=== PATIENT | male | born 1980 | race Hispanic/Latino ===

== ENCOUNTER 2023-05-27 13:16 | Emergency (ER) | payer SELFPAY ==
[2023-05-27] MEDS ORDERED: GABAPENTIN 300 MG CAP ONE (14:26)
--- NOTE | 2023-05-27 14:45 | RAD REPORT ---
EXAM DESCRIPTION: CT - Spine Lumbar Wo Con - 05/27/2023 2:05 pm CLINICAL HISTORY: Radiculopathy. Pain;Numbness/tingling COMPARISON: No comparisons TECHNIQUE: Axial noncontrast CT imaging of the lumbar spine was performed with coronal and sagittal re-formatted images. All CT scans are performed using dose optimization technique as appropriate and may include automated exposure control or mA/KV adjustment according to patient size. FINDINGS: No acute lumbar spine fracture seen. No aggressive marrow pattern or malalignment. Paraspinal tissues are normal in thickness. No paraspinal abscess or hematoma seen. Intervertebral disc disease assessment is inherently limited by CT. Within these limitations, a large central/left subarticular disc extrusion was present L4-5, with annular mineralization, resulting in a degree of canal stenosis, with a caudally migrated component extending 11 mm below the level of L5 superior endplate. This component also narrows the left lateral recess. Endplate and facet remodelin g contributes to moderate bilateral L5-S1 and [id number] bilateral L4-5 bony neural foraminal n arrowing. IMPRESSION: No acute osseus abnormality. Large disc extrusion with caudal migration at L4-5 as above. This may result in encroachment upon the exiting left L4 and descending left L5 nerve roots. Please correlate clinically.Consider MRI follow- up for assessment of disc disease and neural impingement as clinically indicated. Other degenerative changes as above.
--- NOTE | 2023-05-27 15:03 | RAD REPORT ---
EXAM DESCRIPTION: US - Extremity Venous Uni Ltd - 05/27/2023 2:16 pm CLINICAL HISTORY: Pain COMPARISON: None. TECHNIQUE: Real-time sonographic evaluation of the left lower extremity deep venous system was perfo rmed. FINDINGS: Normal compressibility, flow augmentation, phasic flow and spontaneous flow is identified in the left lower extremity deep venous system. No intraluminal filling defects seen. IMPRESSION: No DVT in the left lower extremity.
--- NOTE | 2023-05-27 16:13 | EDPHYS ---
Physician Documentation [facility] Name: Paco Isidro Age: 42 yrs Sex: Male : 1980 Arrival Date: 05/27/2023 Time: 13:16 Bed 19 Private MD: ED Physician Patrick Stallworth HPI: 05/28 13:48 This 42 yrs old Male presents to ER via Wheelchair with complaints of Leg Pain.sb4 13:48 Patient states that he has been experiencing pain in his lateral left knee that sb4 radiates down to his foot and up to his hip for a few days now. He saw his PCP who gave him a steroid injection and prescribed him 800 mg ibuprofen and methocarbamol. He states that he has been taking the medication but that the pain was even worse this morning and wanted to have it evaluated. He denies any numbness or tingling or specific injury to the area. Historical: - Allergies: 05/27 13:36 No Known Allergies; hb - Home Meds: 13:36 None [Active]; hb - PMHx: 13:36 None; hb - PSHx: 13:36 None; hb - Immunization history:: Adult Immunizations up to date. - Social history:: Smoking status: Patient reports the use of cigarette tobacco products, smokes one-half pack cigarettes per day. ROS: 05/28 13:48 Constitutional: Negative for fever, chills, and weight loss, sb4 MS/extremity: Positive for pain, of the left leg, All other systems are negative, Exam: 13:48 Constitutional: This is a well developed, well nourished patient who is awake, alert, sb4 and in no acute distress. Head/Face: Normocephalic, atraumatic. Eyes: Extra-ocular motions intact. Periorbital areas with no swelling, redness, or edema. ENT: Mucous membranes moist. Cardiovascular: Regular rate and rhythm with a normal S1 and S2. Respiratory: Lungs have equal breath sounds bilaterally, clear to auscultation and percussion. No rales, rhonchi or wheezes noted. No increased work of breathing, no retractions or nasal flaring. Abdomen/GI: Soft, non-tender, no distension. Skin: Warm, dry with normal turgor. Normal color with no rashes, no lesions, and no evidence of cellulitis. MS/ Extremity: Pulses equal, no cyanosis. Neurovascular intact. Full, normal range of motion. Neuro: Awake and alert, GCS 15, oriented to person, place, time, and situation. Motor strength 5/5 in all extremities. Sensory grossly intact. Vital Signs: 05/27 13:33 BP 140 / 89; Pulse 67; Resp 16; Temp 97.7(TE); Pulse Ox 100% ; Weight 92.99 kg; Height hb 5 ft. 6 in. ; Pain 10/10; 16:34 BP 136 / 97; Pulse 62; Resp 15; Pulse Ox 98% on R/A; Pain 6/10; nj1 13:33 Body Mass Index 33.09 (92.99 kg, 167.64 cm) hb 13:33 Pain Scale: Adult hb 16:34 Pain Scale: Adult nj1 MDM: 13:40 Patient medically screened. sb4 05/28 13:48 Differential diagnosis: DVT, radiculopathy, tendinitis, meniscal tear, neuropathy. Data sb4 reviewed: vital signs, nurses notes, radiologic studies, and as a result, I will discharge patient. Counseling: I had a detailed discussion with the patient and/or guardian regarding the historical points, exam findings, and any diagnostic results supporting the discharge/admit diagnosis, radiology results, the need for outpatient follow up, Spine, to return to the emergency department if symptoms worsen or persist or if there are any questions or concerns that arise at home. 05/27 13:53 Order name: Spine Lumbar Wo Con CT; Complete Time: 14:50 sb4 05/27 13:53 Order name: Extremity Venous Uni Ltd ; Complete Time: 15:03 sb4 Administered Medications: 05/27 14:14 Drug: Gabapentin PO 600 mg PO once Route: PO; nj1 15:00 Follow up: Response: No adverse reaction; Pain is decreased nj1 Disposition Summary: 05/27/23 16:12 Discharge Ordered Problem: an ongoing problem sb4 Symptoms: have improved sb4 Condition: Stable sb4 Diagnosis - Radiculopathy, lumbosacral region sb4 Followup: sb4 - With: Markel Boyd MD - When: 2 - 3 days - Reason: Further diagnostic work-up, Recheck today's complaints, Re-evaluation by your physician Discharge Instructions: - Discharge Summary Sheet sb4 - Sciatica, [id number] sb4 - Herniated Disk, [id number] sb4 Forms: - Medication Reconciliation Form sb4 - Thank You Letter sb4 - Antibiotic Education sb4 - Prescription Opioid Use sb4 - Patient Portal Instructions sb4 - Leadership Thank You Letter sb4 Prescriptions: - gabapentin 300 mg Oral capsule - take 1 capsule ORAL route every 8 hours; 20 capsule; Refills: 0, Product sb4 Selection Permitted - Dexamethasone 0.5 mg Oral Tablet - take 1 tablet ORAL route 3 times per day; 30 tablet; Refills: 0, Product sb4 Selection Permitted Signatures: Dispatcher [employer] EDEdilma Whitley RN RN Jacqueline Gray PA-C PA-C sb4 Caron Lazo RN RN nj1
--- NOTE | 2023-05-27 16:13 | ER ---
Nurse's Notes [facility] Name: Paco Isidro Age: 42 yrs Sex: Male : 1980 Arrival Date: 05/27/2023 Time: 13:16 Bed 19 Private MD: Diagnosis: Radiculopathy, lumbosacral region Presentation: 05/27 13:33 Chief complaint: Sharp pain in outer left knee that radiates to left hip and left calf. hb Denies injury. Started Motrin 800 mg and methocarbamol 750 mg yesterday with no relief. Coronavirus screen: At this time, the client does not indicate any symptoms associated with coronavirus-19. Ebola Screen: No symptoms or risks identified at this time. Initial Sepsis Screen: Does the patient meet any 2 criteria? No. Patient's initial sepsis screen is negative. Does the patient have a suspected source of infection? No. Patient's initial sepsis screen is negative. Risk Assessment: Do you want to hurt yourself or someone else? Patient reports no desire to harm self or others. Onset of symptoms was May 19, 2023. 13:33 Method Of Arrival: Wheelchair hb 13:33 Acuity: YASMIN 4 hb Historical: - Allergies: 13:36 No Known Allergies; hb - Home Meds: 13:36 None [Active]; hb - PMHx: 13:36 None; hb - PSHx: 13:36 None; hb - Immunization history:: Adult Immunizations up to date. - Social history:: Smoking status: Patient reports the use of cigarette tobacco products, smokes one-half pack cigarettes per day. Screenin:38 [facility] ED Fall Risk Assessment (Adult) Score/Fall Risk Level 0 - 2 = Low Risk nj1 Oriented to surroundings, Maintained a safe environment, Hourly rounding (assess needs \T\ fall precautionary measures) done. Abuse screen: Denies threats or abuse. Denies injuries from another. Nutritional screening: No deficits noted. Tuberculosis screening: No symptoms or risk factors identified. Assessment: 14:10 General: Appears in no apparent distress. comfortable, Behavior is calm, cooperative, nj1 appropriate for age. 14:10 Pain: Complains of pain in left leg Pain currently is 10 out of 10 on a pain scale. nj1 Neuro: Level of Consciousness is awake, alert, obeys commands, Oriented to person, place, time, situation. Cardiovascular: Patient's skin is warm and dry. Respiratory: Airway is patent Respiratory effort is even, unlabored. Musculoskeletal: Reports pain in left leg. 15:00 Reassessment: Patient appears in no apparent distress at this time. Pt resting/sleeping.nj1 16:35 Reassessment: Patient appears in no apparent distress at this time. Patient and/or nj1 family updated on plan of care and expected duration. Pain level reassessed. Patient is alert, oriented x 3, equal unlabored respirations, skin warm/dry/pink. Patient states feeling better. Patient states symptoms have improved. Vital Signs: 13:33 BP 140 / 89; Pulse 67; Resp 16; Temp 97.7(TE); Pulse Ox 100% ; Weight 92.99 kg; Height hb 5 ft. 6 in. ; Pain 10/10; 16:34 BP 136 / 97; Pulse 62; Resp 15; Pulse Ox 98% on R/A; Pain 6/10; nj1 13:33 Body Mass Index 33.09 (92.99 kg, 167.64 cm) hb 13:33 Pain Scale: Adult hb 16:34 Pain Scale: Adult nj1 ED Course: 13:21 Patient arrived in ED. mg5 13:34 Jacqueline Man PA-C is PHCP. sb4 13:34 Patrick Stallworth is Attending Physician. sb4 13:36 Triage completed. hb 13:36 Arm band placed on. hb 14:02 Caron Lazo, RN is Primary Nurse. nj1 14:[address] Wo Con CT In Process Unspecified. EDMS 14:10 Patient has correct armband on for positive identification. Bed in low position. Call nj1 light in reach. Provided Education on: call light, fall precautions. 14:18 Extremity Venous Uni Ltd US In Process Unspecified. EDMS 16:12 Markel Boyd MD is Referral Physician. sb4 16:36 No provider procedures requiring assistance completed. Patient did not have IV access nj1 during this emergency room visit. Administered Medications: 14:14 Drug: Gabapentin PO 600 mg PO once Route: PO; nj1 15:00 Follow up: Response: No adverse reaction; Pain is decreased nj1 Medication: 16:36 VIS not applicable for this client. nj1 Outcome: 16:12 Discharge ordered by MD. mejia 16:36 Discharged to home with family, nj1 16:36 Condition: stable 16:36 Discharge instructions given to patient, Instructed on discharge instructions, follow up and referral plans. medication usage, Demonstrated understanding of instructions, follow-up care, medications, Prescriptions given X 2, 16:37 Patient left the ED. nj1 Signatures: Dispatcher [employer] EDMS Edilma Dotson RN RN hb Brown, Sophia, PA-C PAGuillaume sb4 Caron Lazo RN RN nj1 Ramona Castorena mg5 Corrections: (The following items were deleted from the chart) 14:38 14:10 Pain: Complains of pain in left leg Pain nj nj 16:37 16:34 BP 136 / 97; Pulse 62bpm; Resp 15bpm; Pulse Ox 98% RA; [facility] nj1
[2023-05-27 16:42] VITALS: TEMP 97.7
[2023-05-27 16:44] VITALS: BP 136/97; O2SAT 98
== END 2023-05-27 16:37 | disposition home or self-care (01) ==
LOC: ER 13:16
DX: M54.17 Radiculopathy, lumbosacral region (principal); F17.210 Nicotine dependence, cigarettes, uncomplicated
CPT/HCPCS: 72131; 93971; 99283